=== PATIENT | female | born 1990 | race Two or more races ===

== ENCOUNTER 2022-01-20 22:20 | Emergency (ER) | payer MEDICAID, OTHER ==
[~2022-01-20] VITALS: Ht 170.2 cm; Wt 67.8 kg
[~2022-01-20 22:20] MED LIST: ACET-704 PO; CEPH-264 PO; IBUP-1060 PO; PNV1TABL25 PO; PREN1TAB58 PO
[2022-01-20 22:29] VITALS: BP 135/87
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
== END 2022-01-20 22:52 | disposition left against medical advice (07) ==
LOC: ER 22:20 → EEVIPCON 22:20 → ER 22:52
DX: S01.01XA Laceration without foreign body of scalp, initial encounter (principal); F17.200 Nicotine dependence, unspecified, uncomplicated; Y08.89XA Assault by other specified means, initial encounter; Y93.89 Activity, other specified; Y92.89 Other specified places as the place of occurrence of the external cause; Y99.8 Other external cause status
CPT/HCPCS: 12011; 99282

== ENCOUNTER 2022-02-01 16:00 | Emergency (ER) | payer MEDICAID ==
[~2022-02-01] VITALS: Ht 170.2 cm; Wt 67.7 kg
[2022-02-01] MEDS ORDERED: MAGNESIUM SULFATE 2GM 50 ML IV ONE (19:15)
[2022-02-01] MEDS ORDERED: IV NORMAL SALINE 1000ML BAG 1,000 ML IV ONE (19:15)
[2022-02-01] MEDS ORDERED: SUMAtriptan SUCC 6 MG/0.5 ML VIAL. SQ ONE (19:15)
[2022-02-01] MEDS ORDERED: PROCHLORPERAZINE 10 MG/2 ML VIAL. IV ONE (19:15)
[2022-02-01] MEDS ORDERED: diphenhydrAMINE 50 MG/ML VIAL IVP ONE (19:15)
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
[2022-02-01] MEDS ORDERED: NAPR-683 PO (20:45)
[2022-02-01 21:04] VITALS: BP 115/67
== END 2022-02-01 21:11 | disposition home or self-care (01) ==
LOC: ER 16:00
DX: R51.9 Headache, unspecified (principal); H53.149 Visual discomfort, unspecified; R11.0 Nausea; F17.200 Nicotine dependence, unspecified, uncomplicated; Z88.0 Allergy status to penicillin
CPT/HCPCS: 70450; 81025; 96361; 96365; 96372; 96375; 99284; J0780; J1200; J3030; J3475; J7030